=== PATIENT | female | born 2000 | race Caucasian/White ===

== ENCOUNTER 2019-08-15 13:10 | Outpatient (CLI) | payer OTHER ==
--- NOTE | 2019-08-26 13:52 | CONSULTATION REPORT ---
DATE OF CONSULTATION: 08/15/2019 SUBJECTIVE: Abbey is a 18-year-old female presenting to clinic today for a first time visit for a referral by Dr. Alessia Arguello in [place] for an ingrown toenail left great toe. She is here by request for referral to a specialist for treatment of the ingrown toenail. She admits a recurrent history of multiple ingrown toenails and states that her left great toenail has been removed as a total nail avulsion two times so far. She also states that her mom is concerned and would like to discuss options as well and her mom was on the phone with us today to discuss options too. The patient does not admit to any fevers, chills, nausea, vomiting, shortness of breath or chest pain. She admits to minor clear drainage and sometimes a little bit of color to the drainage at times from the right great toe. She admits that it started as left great toe lateral border pain, but now it is in the medial side as well. The patient denies any drug allergies and denies taking medicine for anything. From the chart review from the referral from Dr. Arguello's office it states that she is, I believe, only on a control medicine. OBJECTIVE: Vitals: Temperature 98.5 degrees Fahrenheit, heart rate 67, respiration rate 16, blood pressure 114/61, O2 saturation is 100% on room air. Vascular: 2+ DP and PT pulses, left foot. Capillary refill time is less than 3 seconds to the toes of the left foot. There is mild edema noted on the medial and lateral borders of the left great toe. Dermatologic: There is moderate granuloma formation noted on the medial side of the left great toenail and mild granuloma formation on the lateral side of the same toenail. There is no erythema or warmth noted. There is just slight pink irritation noted along the edges. There is no purulence or malodor noted. There are no other concerning skin lesions, left foot. Musculoskeletal: There is pain on palpation noted on medial and lateral borders of the left great toenail. There were no other gross abnormalities noted, left foot. Neurologic: Light touch sensation is intact to the toes, left foot. ASSESSMENT AND PLAN: 1. Onychocryptosis medial and lateral borders of the left great toenail. PROCEDURE #1: Partial nail avulsion with chemical matrixectomy of the medial and lateral borders of the left great toenail. Risks and benefits were discussed with the patient that include but are not limited to bleeding and infection and the patient has agreed both by written and verbal consent to going forward with the above procedure. Consent was signed and placed in the chart. The left great toe was cleansed with an alcohol swab times two and injected in the base of the toe with a total of 4 mL of a 1:1 mix of 2% lidocaine plain and 0.5% Marcaine plain. Once anesthesia was obtained the left great toe was exsanguinated and a tourniquet was applied to the left great toe at the base. At this time, the medial and lateral borders were loosened from the surrounding edges and avulsed with a nail splitter on both medial and lateral borders. The site was then rinsed with a copious amount of normal saline. The granuloma extra growth was debrided away with the nail splitter. At this time, after making sure that the nail was removed in its entirety in both medial and lateral borders, triple antibiotic ointment was placed around the edge of the wound and Phenol acid was applied in both nail borders with increments of 45 seconds, 30 seconds, 30 seconds. At this time, the tourniquet was removed and a prompt hyperemic response was noted to the left great toe. A copious amount of 70% isopropyl alcohol was then used to dilute out the wound area and the entire surgical area. The entire area was then rinsed with copious amount of normal saline and dried. Hemostasis was then obtained by significant pressure. At this time, dressings were applied consisting of Silvadene cream to both medial and lateral borders as well as 4x4 gauze, 2-inch Maria Teresa and 1-inch Coban beginning on the toe and ending on the distal forefoot to help hold it on the toe. The patient tolerated the procedure well. She was given written and verbal instructions going forward for postprocedure care. She did not have any further questions or concerns and is happy with the decision she made to have a permanent procedure done on medial and lateral borders as this is a recurrent problem for her. We have this discussion prior to deciding what to do today as opposed to just taking out the medial and lateral borders without any permanent procedure. I did not feel that would be helpful for her as she has had a recurrent problem. She had no further questions or concerns and understands that she needs to follow up in one week and then two weeks later. Return to clinic in one week for followup of medial and lateral border partial nail avulsion with chemical matrixectomy on the left great toe. I do not believe that there is any need for antibiotics as this appears to be just be irritated and not infected. Torin MauricePJayaM. (Dictated/not signed) /Accutype [id number] /mab MTDD
== END 2019-08-15 13:40 ==
LOC: EDBD 13:10 → POD 13:10
PROVIDERS: ATTEND Podiatrist Foot & Ankle Surgery
DX: L60.0 Ingrowing nail (principal)
CPT/HCPCS: A4554; J2001; J3490

== ENCOUNTER 2019-08-22 14:13 | Outpatient (CLI) | payer OTHER ==
--- NOTE | 2019-08-27 10:30 | OP Clinic Progress Note ---
DATE OF VISIT: 08/22/2019 SUBJECTIVE: Abbey is a 18-year-old female presenting to clinic today for followup of a partial nail avulsion with chemical matrixectomy on the left great toe medial and lateral nail borders. She states that she is not having any pain. She is doing Epsom salt soaks every once day. She is doing antibiotic ointment and a Band-Aid daily. She does not admit to any other issues or pain at all and does not admit to any fevers, chills, nausea, vomiting, shortness of breath or chest pain. OBJECTIVE: Vitals: Temperature 98.9 degrees Fahrenheit, heart rate 73, respiration rate 16, blood pressure 117/72. O2 saturation is 97% on room air. Vascular: 2+ DP and PT pulses, left foot. Capillary refill time is less than 3 seconds to the toes of the left foot. There is no edema noted, left foot. Dermatologic: There is mild serous drainage and slight yellow discoloration to the base of the medial and lateral borders of the left great toe where the procedures were performed. There is very mild irritation around the edges of that, which is hardly visible. There is no warmth or erythema or purulence noted or any other signs of infection. Musculoskeletal: There is no pain on palpation on medial or lateral borders. There were no other gross abnormalities noted, left foot. Neurologic: Light touch sensation is intact to the toes, left foot. ASSESSMENT AND PLAN: 1. Followup post partial nail avulsion with chemical matrixectomy on the left great toe medial and lateral borders, date of procedure 08/15/2019. The patient had a very light debridement of both edges with a curette today, which we will not charge for, as I was unable to get anything out. We rinsed it with a copious amount of normal saline, dried it and applied Triple Antibiotic Ointment and a Band-Aid. The patient is to continue doing Triple Antibiotic Ointment and a Band-Aid daily for one week and then to switch to just a plain Band-Aid for one week. The patient has no further questions or concerns. She is healing appropriately for one week status post this procedure. Return to clinic in two weeks for followup. Torin MauricePJayaM. (Dictated/not signed) /Accutype [id number] /mab MTDD
== END 2019-08-22 14:43 ==
LOC: EDBD → POD 14:13
PROVIDERS: ATTEND Podiatrist Foot & Ankle Surgery
DX: Z48.817 Encounter for surgical aftercare following surgery on the skin and subcutaneous tissue (principal)
CPT/HCPCS: 99212